=== PATIENT | female | born 1970 | race Two or more races ===

== ENCOUNTER 2018-10-06 19:48 | Emergency (ER) | payer OTHER ==
[~2018-10-06] VITALS: Ht 152.4 cm; Wt 49.4 kg
[2018-10-06] MEDS ORDERED: ZYRTEC10 M3 (20:27)
[2018-10-06] MEDS ORDERED: VITAMIN D1000 UNI1 (20:28)
== END 2018-10-06 21:13 | disposition home or self-care (01) ==
LOC: ER 19:48
DX: T78.1XXA Other adverse food reactions, not elsewhere classified, initial encounter (principal); L25.4 Unspecified contact dermatitis due to food in contact with skin; X58.XXXA Exposure to other specified factors, initial encounter